=== PATIENT | female | born 1945 | race Caucasian/White ===

== ENCOUNTER 2018-01-16 07:00 | Day surgery (SDC) | payer MEDICARE ==
[~2018-01-16] VITALS: Ht 170.2 cm; Wt 95.1 kg
[2018-01-16] VITALS (15 sets, daily range): BP systolic 116–139; BP diastolic 72–106
[~2018-01-16 07:00] MED LIST: ATOR40TA PO; BIMA2.5D OP; CARV-49 PO; DABI150C PO; FLEC100T2 PO; LACT1CAP65 PO; METH1TAB31 PO; MV M; OMEG1CAP54 PO; POLY17PO10 PO; RED600TA PO; UBID100C16 PO; VALS1TAB73 PO; VIT1CAPS42 PO
[2018-01-16] MEDS ORDERED: MIDAZolam 5mg/ml 2ml vial IV ONE (07:30)
[2018-01-16] MEDS ORDERED: fentaNYL/PF 50MCG/1 ML 2ML syringe IV ONE (07:30)
[2018-01-16] MEDS ORDERED: normal saline 1000ml 1,000 ML IV SCH (07:30)
[2018-01-16] MEDS ORDERED: APIX5TAB3 PO (07:30)
[2018-01-16] MEDS ORDERED: SOTA80TA73 PO (07:34)
[2018-01-16] MEDS ORDERED: LOSA1TAB36 PO (07:34)
[2018-01-16] MEDS ORDERED: GINK120C PO (07:38)
[2018-01-16] MEDS ORDERED: LUTE1CAP4 PO (07:38)
[2018-01-16] MEDS ORDERED: [UNRECOGNIZED DRUG - OTHER] PO (07:38)
[2018-01-16 08:12] LABS: ALBUMIN 3.5 G/DL (3.4-5.0); ANION GAP 7 (8-16); BASOPHILS % (AUTO) 0.5 % (0-1); BLOOD UREA NITROGEN 18 MG/DL (7-18); BUN/CREATININE RATIO 19.6 (6.6-38.0); CALCIUM 9.4 MG/DL (8.5-10.1); CHLORIDE 105 MMOL/L (99-107); CREATININE 0.92 MG/DL (0.40-0.90); EOSINOPHILS # (AUTO) 0.1 X10'3 (0-0.9); EOSINOPHILS % (AUTO) 2.6 % (0-6); GLUCOSE 112 MG/DL (70-104); HEMATOCRIT 44.6 % (35.0-45.0); LYMPHOCYTES # (AUTO) 2.3 X10'3 (1.1-4.8); LYMPHOCYTES % (AUTO) 43.1 % (21-51); MAGNESIUM 1.9 MG/DL (1.5-2.4); MEAN CORPUSCULAR HEMOGLOBIN 31.9 PG (27.0-31.0); MEAN CORPUSCULAR HGB CONC 33.6 % (33.0-36.5); MEAN CORPUSCULAR VOLUME 95.1 FL (78-98); MEAN PLATELET VOLUME 6.8 FL (7.4-10.4); MONOCYTES # (AUTO) 0.4 X10'3 (0-0.9); MONOCYTES % (AUTO) 8.2 % (2-12); NEUTROPHILS # (AUTO) 2.6 X10'3 (1.8-7.7); NEUTROPHILS % (AUTO) 45.6 % (42-75); PLATELET COUNT 239 X10'3 (140-440); POTASSIUM 3.9 MMOL/L (3.5-5.1); RED CELL DISTRIBUTION WIDTH 13.5 % (11.5-14.5); SODIUM 140 MMOL/L (135-145); TOTAL CARBON DIOXIDE 28.5 MMOL/L (24-32); WHITE BLOOD COUNT 5.4 X10'3 (4.5-11.0); eGFR 60 ML/MIN
[2018-01-16 08:27] LABS: INR 1.1 INR; PROTHROMBIN TIME 11.3 SECONDS (9.0-12.0)
== END 2018-01-16 10:45 | disposition home or self-care (01) ==
LOC: SSTAY O 07:00
PROVIDERS: ATTEND Internal Medicine Cardiovascular Disease
DX: I48.0 Paroxysmal atrial fibrillation (principal); I44.0 Atrioventricular block, first degree; I10 Essential (primary) hypertension; E78.5 Hyperlipidemia, unspecified; E66.9 Obesity, unspecified; G47.33 Obstructive sleep apnea (adult) (pediatric); I48.4 Atypical atrial flutter; I42.7 Cardiomyopathy due to drug and external agent; I08.0 Rheumatic disorders of both mitral and aortic valves; I49.5 Sick sinus syndrome; I25.10 Atherosclerotic heart disease of native coronary artery without angina pectoris; M19.90 Unspecified osteoarthritis, unspecified site; F32.9 Major depressive disorder, single episode, unspecified; Z87.440 Personal history of urinary (tract) infections; Z87.19 Personal history of other diseases of the digestive system; Z72.89 Other problems related to lifestyle; Z98.82 Breast implant status; Z79.01 Long term (current) use of anticoagulants; Z90.710 Acquired absence of both cervix and uterus; Z98.41 Cataract extraction status, right eye; Z98.42 Cataract extraction status, left eye; Z68.32 Body mass index [BMI] 32.0-32.9, adult; Z88.0 Allergy status to penicillin; Z88.5 Allergy status to narcotic agent; Z88.6 Allergy status to analgesic agent; Z90.711 Acquired absence of uterus with remaining cervical stump; Z79.899 Other long term (current) drug therapy; Z98.890 Other specified postprocedural states; Z82.49 Family history of ischemic heart disease and other diseases of the circulatory system
CPT/HCPCS: 36415; 80048; 83735; 85025; 85610; 92960; 93005; J2250; J3010; J7030; A4620

== ENCOUNTER 2018-02-03 10:21 | Inpatient (IN) | payer MEDICARE ==
[~2018-02-03] VITALS: Ht 152.4 cm; Wt 92.9 kg
[~2018-02-03 10:21] MED LIST changes: +APIX5TAB3 PO; -CARV-49 PO; -DABI150C PO; -FLEC100T2 PO; +GINK120C PO; +LOSA1TAB36 PO; +LUTE1CAP4 PO; -RED600TA PO; +SOTA80TA73 PO; -VALS1TAB73 PO; -VIT1CAPS42 PO; +[UNRECOGNIZED DRUG - OTHER] PO
[2018-02-03 11:14] VITALS: BP 113/71
[2018-02-03 12:37] LABS: BASOPHILS % (AUTO) 0 % (0-1); EOSINOPHILS # (AUTO) 0.1 X10'3 (0-0.9); EOSINOPHILS % (AUTO) 0.9 % (0-6); HEMATOCRIT 38.9 % (35.0-45.0); HEMOGLOBIN 12.9 g/dl (12.0-16.0); LYMPHOCYTES # (AUTO) 1.3 X10'3 (1.1-4.8); LYMPHOCYTES % (AUTO) 9.5 % (21-51); MEAN CORPUSCULAR HEMOGLOBIN 31.4 PG (27.0-31.0); MEAN CORPUSCULAR HGB CONC 33.2 % (33.0-36.5); MEAN CORPUSCULAR VOLUME 94.7 FL (78-98); MEAN PLATELET VOLUME 6.4 FL (7.4-10.4); MONOCYTES # (AUTO) 1.1 X10'3 (0-0.9); MONOCYTES % (AUTO) 7.8 % (2-12); NEUTROPHILS # (AUTO) 11.3 X10'3 (1.8-7.7); NEUTROPHILS % (AUTO) 81.8 % (42-75); PLATELET COUNT 412 X10'3 (140-440); RED BLOOD COUNT 4.11 X10'6 (4.20-5.60); RED CELL DISTRIBUTION WIDTH 13.9 % (11.5-14.5); WHITE BLOOD COUNT 13.9 X10'3 (4.5-11.0)
[2018-02-03 13:07] LABS: ALANINE AMINOTRANSFERASE 18 U/L (12-78); ALBUMIN 2.4 G/DL (3.4-5.0); ALBUMIN/GLOBULIN RATIO 0.5 (1.1-1.5); ALKALINE PHOSPHATASE 67 IU/L (46-116); ANION GAP 6 (8-16); ASPARTATE AMINO TRANSFERASE 16 U/L (10-37); BILIRUBIN,TOTAL 0.7 MG/DL (0.1-1.0); BLOOD UREA NITROGEN 8 MG/DL (7-18); BUN/CREATININE RATIO 8.2 (6.6-38.0); CALCIUM 8.9 MG/DL (8.5-10.1); CHLORIDE 97 MMOL/L (99-107); CREATININE 0.98 MG/DL (0.40-0.90); GLUCOSE 125 MG/DL (70-104); POTASSIUM 3.6 MMOL/L (3.5-5.1); SODIUM 133 MMOL/L (135-145); TOTAL CARBON DIOXIDE 29.9 MMOL/L (24-32); TOTAL PROTEIN 6.9 G/DL (6.4-8.2); eGFR 56 ML/MIN
[2018-02-03] MEDS ORDERED: pneumococcal 23-VAL P-sac vacc 25 mcg/0.5ml vial IMVAC ONE (14:05)
[2018-02-03] MEDS ORDERED: METO-384 PO (14:19)
[2018-02-03] MEDS ORDERED: LATA2.5D2 (14:24)
[2018-02-03] MEDS: normal saline 1000ml 1,000 ML IV SCH (15:16)
[2018-02-03] MEDS: losartan 50mg tablet PO SCH (16:45)
[2018-02-03] MEDS ORDERED: acetaminophen 325mg tablet PO PRN (18:55)
[2018-02-03] MEDS: metoprolol succinate 25mg (24-HOUR) SR. Tablet PO SCH (19:18)
[2018-02-03 20:00] VITALS: BP 118/65
[2018-02-03] MEDS ORDERED: non-formulary drug (Ginkgo Biloba Extract (Ginkgo Biloba) 120 MG) PO SCH (20:00)
[2018-02-03] MEDS ORDERED: piperacillin/tazo 3.375gm/50ml 50 ML IV SCH (20:00)
[2018-02-03] MEDS: levoFLOXACIN-Levaquin 750MG/D5 150 ML IV SCH (22:03)
[2018-02-03] MEDS: latanoprost 0.005% 2.5ml ophthalmic drops LEFTEYE SCH (22:04)
[2018-02-04] VITALS: BP 96/45
[2018-02-04] MEDS: metroNIDAZOLE-Flagyl 500mg/NS 100 ML IV SCH ×4 (00:32→23:07)
[2018-02-04] MEDS: normal saline 1000ml 1,000 ML IV SCH ×3 (05:30→20:39)
[2018-02-04 07:10] VITALS: BP 111/65
[2018-02-04] MEDS: metoprolol succinate 25mg (24-HOUR) SR. Tablet PO SCH ×2 (07:57→20:32)
[2018-02-04] MEDS ORDERED: atorvastatin 20mg tablet PO SCH (08:00)
[2018-02-04] MEDS: lactobacillus rhamnosus 10,000 MMU CELLS/CAPSULE PO SCH (08:01)
[2018-02-04] MEDS: losartan 50mg tablet PO SCH (08:02)
[2018-02-04 11:12] VITALS: BP 109/50
[2018-02-04] MEDS ORDERED: heparin 25,000 UNIT/250ml bag 250 ML IV SCH (12:52)
[2018-02-04] MEDS ORDERED: heparin 10,000 units/1 ML INJ IV PRN (12:55)
[2018-02-04 13:39] LABS: BASOPHILS % (AUTO) 0.2 % (0-1); EOSINOPHILS % (AUTO) 0 % (0-6); HEMOGLOBIN 11.9 g/dl (12.0-16.0); LYMPHOCYTES # (AUTO) 1.2 X10'3 (1.1-4.8); LYMPHOCYTES % (AUTO) 8.4 % (21-51); MEAN CORPUSCULAR HEMOGLOBIN 31.2 PG (27.0-31.0); MEAN CORPUSCULAR VOLUME 94.5 FL (78-98); MEAN PLATELET VOLUME 6.4 FL (7.4-10.4); MONOCYTES # (AUTO) 1.2 X10'3 (0-0.9); MONOCYTES % (AUTO) 8.7 % (2-12); NEUTROPHILS # (AUTO) 11.7 X10'3 (1.8-7.7); NEUTROPHILS % (AUTO) 82.7 % (42-75); PLATELET COUNT 333 X10'3 (140-440); RED BLOOD COUNT 3.81 X10'6 (4.20-5.60); WHITE BLOOD COUNT 14.1 X10'3 (4.5-11.0)
[2018-02-04 14:03] LABS: INR 1.3 INR; PROTHROMBIN TIME 13.4 SECONDS (9.0-12.0)
[2018-02-04] MEDS: heparin 25,000 UNIT/250ml bag 250 ML IV SCH (14:55)
[2018-02-04 16:50] VITALS: BP 112/52
[2018-02-04 20:00] VITALS: BP 127/69
[2018-02-04] MEDS: atorvastatin 20mg tablet PO SCH (20:32)
[2018-02-04] MEDS: levoFLOXACIN-Levaquin 750MG/D5 150 ML IV SCH (20:33)
[2018-02-04] MEDS: latanoprost 0.005% 2.5ml ophthalmic drops LEFTEYE SCH (20:33)
[2018-02-04] MEDS: ondansetron/PF 4mg/2ml inj IV PRN (23:07)
[2018-02-05] VITALS (17 sets, daily range): BP systolic 86–116; BP diastolic 47–84
[2018-02-05 03:14] LABS: BASOPHILS % (AUTO) 0.3 % (0-1); EOSINOPHILS % (AUTO) 0 % (0-6); HEMATOCRIT 36.5 % (35.0-45.0); HEMOGLOBIN 12.2 g/dl (12.0-16.0); LYMPHOCYTES # (AUTO) 1.4 X10'3 (1.1-4.8); LYMPHOCYTES % (AUTO) 10.1 % (21-51); MEAN CORPUSCULAR HEMOGLOBIN 31.5 PG (27.0-31.0); MEAN CORPUSCULAR HGB CONC 33.3 % (33.0-36.5); MEAN CORPUSCULAR VOLUME 94.5 FL (78-98); MEAN PLATELET VOLUME 6.7 FL (7.4-10.4); MONOCYTES # (AUTO) 1.5 X10'3 (0-0.9); MONOCYTES % (AUTO) 10.4 % (2-12); NEUTROPHILS # (AUTO) 11.2 X10'3 (1.8-7.7); NEUTROPHILS % (AUTO) 79.2 % (42-75); PLATELET COUNT 375 X10'3 (140-440); RED BLOOD COUNT 3.86 X10'6 (4.20-5.60); RED CELL DISTRIBUTION WIDTH 14.1 % (11.5-14.5); WHITE BLOOD COUNT 14.2 X10'3 (4.5-11.0)
[2018-02-05 03:35] LABS: ALANINE AMINOTRANSFERASE 18 U/L (12-78); ALBUMIN/GLOBULIN RATIO 0.4 (1.1-1.5); ALKALINE PHOSPHATASE 74 IU/L (46-116); ANION GAP 8 (8-16); ASPARTATE AMINO TRANSFERASE 15 U/L (10-37); BILIRUBIN,TOTAL 0.5 MG/DL (0.1-1.0); BLOOD UREA NITROGEN 5 MG/DL (7-18); BUN/CREATININE RATIO 6.1 (6.6-38.0); CHLORIDE 100 MMOL/L (99-107); CREATININE 0.82 MG/DL (0.40-0.90); GLUCOSE 121 MG/DL (70-104); POTASSIUM 3.4 MMOL/L (3.5-5.1); SODIUM 134 MMOL/L (135-145); TOTAL CARBON DIOXIDE 26.2 MMOL/L (24-32); TOTAL PROTEIN 6.5 G/DL (6.4-8.2); eGFR 69 ML/MIN
[2018-02-05] MEDS: lactobacillus rhamnosus 10,000 MMU CELLS/CAPSULE PO SCH (07:24)
[2018-02-05] MEDS: losartan 50mg tablet PO SCH (07:29)
[2018-02-05] MEDS: metoprolol succinate 25mg (24-HOUR) SR. Tablet PO SCH (07:29)
[2018-02-05] MEDS: metroNIDAZOLE-Flagyl 500mg/NS 100 ML IV SCH ×2 (07:30→15:28)
[2018-02-05] MEDS ORDERED: metoprolol tartrate 1mg/ml inj IV PRN (08:40)
[2018-02-05] MEDS ORDERED: nitroGLYCERIN 0.4mg SUBLingual tab SL PRN (08:40)
[2018-02-05] MEDS ORDERED: regadenoson 0.4mg/5ml syringe IV ONE ×2 (08:40→11:47)
[2018-02-05] MEDS ORDERED: aminophylline 250mg/10ml inj. IV PRN (08:40)
[2018-02-05] MEDS: levoFLOXACIN-Levaquin 750MG/D5 150 ML IV SCH (09:06)
[2018-02-05] MEDS ORDERED: potassium Cl 40MEQ/NS 500ml 500 ML IV PRN ×2 (09:10)
[2018-02-05] MEDS ORDERED: potassium Cl 20 mEq SR tablet PO PRN ×2 (09:10)
[2018-02-05] MEDS ORDERED: aminophylline inj. 10 ML IV ONE (11:47)
[2018-02-05] MEDS ORDERED: TIMO5SOL8 EACHEYE (13:58)
[2018-02-05] MEDS ORDERED: heparin 25,000 UNIT/250ml bag 250 ML IV SCH (14:18)
[2018-02-05] MEDS ORDERED: heparin 10,000 units/1 ML INJ IV ONE (14:20)
[2018-02-05] MEDS ORDERED: heparin 10,000 units/1 ML INJ IV PRN (14:20)
[2018-02-05] MEDS: ondansetron/PF 4mg/2ml inj IV PRN (14:31)
[2018-02-05] MEDS: heparin 25,000 UNIT/250ml bag 250 ML IV SCH (15:39)
[2018-02-05 16:55] LABS: MAGNESIUM 1.5 MG/DL (1.5-2.4); PHOSPHORUS 1.9 MG/DL (2.3-4.5)
[2018-02-05 17:03] LABS: BASOPHILS % (AUTO) 0.3 % (0-1); EOSINOPHILS % (AUTO) 0 % (0-6); HEMATOCRIT 37.7 % (35.0-45.0); HEMOGLOBIN 12.6 g/dl (12.0-16.0); LYMPHOCYTES # (AUTO) 1.4 X10'3 (1.1-4.8); LYMPHOCYTES % (AUTO) 9.6 % (21-51); MEAN CORPUSCULAR HEMOGLOBIN 31.7 PG (27.0-31.0); MEAN CORPUSCULAR HGB CONC 33.3 % (33.0-36.5); MEAN CORPUSCULAR VOLUME 95.3 FL (78-98); MEAN PLATELET VOLUME 7.1 FL (7.4-10.4); MONOCYTES % (AUTO) 6.9 % (2-12); NEUTROPHILS # (AUTO) 12.2 X10'3 (1.8-7.7); NEUTROPHILS % (AUTO) 83.2 % (42-75); PLATELET COUNT 356 X10'3 (140-440); RED BLOOD COUNT 3.96 X10'6 (4.20-5.60); RED CELL DISTRIBUTION WIDTH 14.1 % (11.5-14.5); WHITE BLOOD COUNT 14.6 X10'3 (4.5-11.0)
[2018-02-05] MEDS ORDERED: sodium phosphate inj. 15 MMOL in dextrose 5%-water 150 ML IV PRN (17:15)
[2018-02-05] MEDS ORDERED: sodium phosphate inj. 30 MMOL in dextrose 5%-water 250 ML IV PRN (17:15)
[2018-02-05] MEDS: Neutra Phos packet PO PRN (17:24)
[2018-02-05] MEDS: latanoprost 0.005% 2.5ml ophthalmic drops LEFTEYE SCH (21:30)
[2018-02-05] MEDS: atorvastatin 20mg tablet PO SCH (21:30)
[2018-02-05 22:33] LABS: CLARITY,URINE CLEAR (Clear); COLOR,URINE YELLOW (Yellow); GLUCOSE, URINE NEGATIVE (Neg); KETONES,URINE TRACE mg/dl (Neg); LEUKOCYTE ESTERASE ,URINE NEGATIVE (Neg); NITRITES, URINE POSITIVE (Neg); OCCULT BLOOD,URINE TRACE-INTACT (Neg); PROTEIN,URINE NEGATIVE (Neg); UROBILINOGEN,URINE 0.2 E.U/dL (0.2-1.0)
[2018-02-05 22:39] LABS: UA COLLECTION TYPE CLN CATCH MIDSTREAM
[2018-02-05] MEDS: normal saline 1000ml 1,000 ML IV SCH (22:39)
[2018-02-05 22:40] LABS: WBC,URINE 0-4 /HPF (0-4)
[2018-02-05 22:41] LABS: BACTERIA,URINE FEW /HPF (Neg)
[2018-02-05 22:42] LABS: CELLULAR CAST 0-4 /LPF (NEGATIVE); MUCUS STRANDS MODERATE /LPF (Neg); SQUAMOUS EPITHELIAL CELL,UR FEW /LPF (FEW); WBC CLUMPS,URINE FEW /HPF (NEGATIVE)
[2018-02-06] VITALS: BP 121/81
[2018-02-06] MEDS: Neutra Phos packet PO PRN ×4 (00:29→20:50)
[2018-02-06] MEDS: metroNIDAZOLE-Flagyl 500mg/NS 100 ML IV SCH ×4 (00:30→23:45)
[2018-02-06] MEDS: magnesium oxide 400mg tablet PO SCH ×3 (00:30→11:46)
[2018-02-06 02:02] LABS: BASOPHILS % (AUTO) 0.4 % (0-1); EOSINOPHILS # (AUTO) 0.1 X10'3 (0-0.9); EOSINOPHILS % (AUTO) 1.1 % (0-6); HEMOGLOBIN 11.2 g/dl (12.0-16.0); LYMPHOCYTES # (AUTO) 1.3 X10'3 (1.1-4.8); LYMPHOCYTES % (AUTO) 10.9 % (21-51); MEAN CORPUSCULAR HEMOGLOBIN 31.4 PG (27.0-31.0); MEAN CORPUSCULAR HGB CONC 32.9 % (33.0-36.5); MEAN CORPUSCULAR VOLUME 95.3 FL (78-98); MEAN PLATELET VOLUME 6.5 FL (7.4-10.4); MONOCYTES % (AUTO) 8.5 % (2-12); NEUTROPHILS # (AUTO) 9.5 X10'3 (1.8-7.7); NEUTROPHILS % (AUTO) 79.1 % (42-75); PLATELET COUNT 321 X10'3 (140-440); RED BLOOD COUNT 3.57 X10'6 (4.20-5.60)
[2018-02-06 07:34] VITALS: BP_SYST 117; BP_SYST 95; BP_DIAS 69; BP_DIAS 71
[2018-02-06 07:39] LABS: MAGNESIUM 1.4 MG/DL (1.5-2.4); PHOSPHORUS 2.1 MG/DL (2.3-4.5)
[2018-02-06] MEDS: heparin 25,000 UNIT/250ml bag 250 ML IV SCH ×3 (07:55→23:47)
[2018-02-06] MEDS ORDERED: losartan 50mg tablet PO SCH (08:00)
[2018-02-06] MEDS ORDERED: HYDROchlorothiazide 12.5mg capsule PO SCH (08:00)
[2018-02-06] MEDS: methenamine hippurate 1gm tablet PO SCH ×2 (08:00→08:25)
[2018-02-06] MEDS: beta-carotene(A) w/C & E + minerals tab PO SCH ×2 (08:00→08:26)
[2018-02-06] MEDS: lactobacillus rhamnosus 10,000 MMU CELLS/CAPSULE PO SCH ×2 (08:00→08:26)
[2018-02-06] MEDS ORDERED: timolol XE 0.5% ophth GEL forming sol 5ml EACHEYE SCH (08:00)
[2018-02-06] MEDS ORDERED: furosemide 10 MG/1 ML 10ml inj IV SCH (08:00)
[2018-02-06] MEDS: levoFLOXACIN-Levaquin 750MG/D5 150 ML IV SCH (08:16)
[2018-02-06 11:35] VITALS: BP 107/72
[2018-02-06] MEDS: normal saline 1000ml 1,000 ML IV SCH ×2 (14:30→15:20)
[2018-02-06 18:00] VITALS: BP 110/71
[2018-02-06] MEDS: latanoprost 0.005% 2.5ml ophthalmic drops LEFTEYE SCH (20:49)
[2018-02-06] MEDS: metoprolol tartrate 12.5mg (1/2 tablet) PO SCH (20:50)
[2018-02-06] MEDS: atorvastatin 20mg tablet PO SCH (20:50)
[2018-02-07] VITALS: BP 108/71
[2018-02-07] MEDS: heparin 25,000 UNIT/250ml bag 250 ML IV SCH (03:16)
[2018-02-07 04:56] LABS: BASOPHILS % (AUTO) 0.4 % (0-1); EOSINOPHILS % (AUTO) 0 % (0-6); HEMOGLOBIN 11.1 g/dl (12.0-16.0); LYMPHOCYTES # (AUTO) 1.5 X10'3 (1.1-4.8); LYMPHOCYTES % (AUTO) 14.1 % (21-51); MEAN CORPUSCULAR HEMOGLOBIN 31.5 PG (27.0-31.0); MEAN CORPUSCULAR HGB CONC 33.5 % (33.0-36.5); MEAN CORPUSCULAR VOLUME 94.3 FL (78-98); MEAN PLATELET VOLUME 7.4 FL (7.4-10.4); MONOCYTES % (AUTO) 9.7 % (2-12); NEUTROPHILS # (AUTO) 7.9 X10'3 (1.8-7.7); NEUTROPHILS % (AUTO) 75.8 % (42-75); PLATELET COUNT 287 X10'3 (140-440); RED CELL DISTRIBUTION WIDTH 13.9 % (11.5-14.5); WHITE BLOOD COUNT 10.4 X10'3 (4.5-11.0)
[2018-02-07] MEDS: Neutra Phos packet PO PRN ×2 (05:06→14:03)
[2018-02-07] MEDS ORDERED: potassium Cl oral solution 20 MEQ/15 ML PO PRN ×2 (07:11→07:15)
[2018-02-07 07:16] VITALS: BP 125/71
[2018-02-07] MEDS ORDERED: timolol XE 0.5% ophth GEL forming sol 5ml LEFTEYE SCH (08:00)
[2018-02-07] MEDS: beta-carotene(A) w/C & E + minerals tab PO SCH (08:00)
[2018-02-07] MEDS: metroNIDAZOLE-Flagyl 500mg/NS 100 ML IV SCH ×3 (08:01→23:49)
[2018-02-07] MEDS: metoprolol tartrate 12.5mg (1/2 tablet) PO SCH ×2 (08:02→20:43)
[2018-02-07] MEDS: lactobacillus rhamnosus 10,000 MMU CELLS/CAPSULE PO SCH (08:03)
[2018-02-07] MEDS: timolol 0.5% ophthalmic solution 5ml bottle LEFTEYE SCH (08:05)
[2018-02-07] MEDS: methenamine hippurate 1gm tablet PO SCH (08:05)
[2018-02-07] MEDS: normal saline 1000ml 1,000 ML IV SCH (08:11)
[2018-02-07 09:23] LABS: ALBUMIN 2.2 G/DL (3.4-5.0); ANION GAP 7 (8-16); BLOOD UREA NITROGEN 3 MG/DL (7-18); CALCIUM 8.2 MG/DL (8.5-10.1); CHLORIDE 99 MMOL/L (99-107); GLUCOSE 158 MG/DL (70-104); POTASSIUM 4.2 MMOL/L (3.5-5.1); SODIUM 133 MMOL/L (135-145); TOTAL CARBON DIOXIDE 26.7 MMOL/L (24-32); eGFR 55 ML/MIN
[2018-02-07] MEDS: levoFLOXACIN-Levaquin 750MG/D5 150 ML IV SCH (09:48)
[2018-02-07 11:06] LABS: MAGNESIUM 1.3 MG/DL (1.5-2.4)
[2018-02-07 11:39] VITALS: BP 102/55
[2018-02-07] MEDS ORDERED: magnesium Cl slow-release 64mg tablet PO PRN (16:10)
[2018-02-07] MEDS ORDERED: magnesium 4gm in 100ml NS 100 ML IV PRN (16:10)
[2018-02-07 18:00] VITALS: BP 109/67
[2018-02-07] MEDS: atorvastatin 20mg tablet PO SCH (20:44)
[2018-02-07] MEDS: latanoprost 0.005% 2.5ml ophthalmic drops LEFTEYE SCH (20:44)
[2018-02-07] MEDS: apixaban 5mg tablet PO SCH (20:44)
[2018-02-07] MEDS: magnesium 1gm/100ml D5W IVPB 100 ML IV PRN ×2 (21:00→22:16)
[2018-02-08] VITALS: BP 123/75
[2018-02-08] MEDS: normal saline 1000ml 1,000 ML IV SCH (04:06)
[2018-02-08 05:12] LABS: BASOPHILS % (AUTO) 0.2 % (0-1); EOSINOPHILS % (AUTO) 0 % (0-6); HEMATOCRIT 33.7 % (35.0-45.0); HEMOGLOBIN 11.1 g/dl (12.0-16.0); LYMPHOCYTES # (AUTO) 1.4 X10'3 (1.1-4.8); LYMPHOCYTES % (AUTO) 19.2 % (21-51); MEAN CORPUSCULAR HEMOGLOBIN 31.3 PG (27.0-31.0); MEAN PLATELET VOLUME 7.3 FL (7.4-10.4); MONOCYTES # (AUTO) 0.8 X10'3 (0-0.9); MONOCYTES % (AUTO) 10.3 % (2-12); NEUTROPHILS # (AUTO) 5.2 X10'3 (1.8-7.7); NEUTROPHILS % (AUTO) 70.3 % (42-75); PLATELET COUNT 303 X10'3 (140-440); RED BLOOD COUNT 3.55 X10'6 (4.20-5.60); RED CELL DISTRIBUTION WIDTH 14.5 % (11.5-14.5); WHITE BLOOD COUNT 7.5 X10'3 (4.5-11.0)
[2018-02-08 05:25] LABS: MAGNESIUM 2.3 MG/DL (1.5-2.4); PHOSPHORUS 2.8 MG/DL (2.3-4.5); POTASSIUM 3.7 MMOL/L (3.5-5.1)
[2018-02-08 07:00] VITALS: BP 104/57
[2018-02-08] MEDS: metoprolol tartrate 12.5mg (1/2 tablet) PO SCH ×3 (07:22→20:35)
[2018-02-08] MEDS: metroNIDAZOLE-Flagyl 500mg/NS 100 ML IV SCH ×2 (07:45→16:11)
[2018-02-08] MEDS: timolol 0.5% ophthalmic solution 5ml bottle LEFTEYE SCH (07:46)
[2018-02-08] MEDS: lactobacillus rhamnosus 10,000 MMU CELLS/CAPSULE PO SCH (07:46)
[2018-02-08] MEDS: apixaban 5mg tablet PO SCH ×2 (07:46→20:35)
[2018-02-08] MEDS: methenamine hippurate 1gm tablet PO SCH (07:46)
[2018-02-08 11:43] VITALS: BP 94/61
[2018-02-08 19:00] VITALS: BP 93/66
[2018-02-08] MEDS: latanoprost 0.005% 2.5ml ophthalmic drops LEFTEYE SCH (20:34)
[2018-02-08] MEDS: atorvastatin 20mg tablet PO SCH (20:34)
[2018-02-08 20:43] VITALS: BP 116/84
[2018-02-09] VITALS: BP 112/67
[2018-02-09] MEDS: metroNIDAZOLE-Flagyl 500mg/NS 100 ML IV SCH ×2 (00:23→07:23)
[2018-02-09 05:11] LABS: BASOPHILS % (AUTO) 0.3 % (0-1); EOSINOPHILS # (AUTO) 0.1 X10'3 (0-0.9); EOSINOPHILS % (AUTO) 2.4 % (0-6); HEMATOCRIT 34.9 % (35.0-45.0); HEMOGLOBIN 11.6 g/dl (12.0-16.0); LYMPHOCYTES # (AUTO) 1.9 X10'3 (1.1-4.8); LYMPHOCYTES % (AUTO) 31.2 % (21-51); MEAN CORPUSCULAR HEMOGLOBIN 31.6 PG (27.0-31.0); MEAN CORPUSCULAR HGB CONC 33.2 % (33.0-36.5); MEAN CORPUSCULAR VOLUME 95.2 FL (78-98); MEAN PLATELET VOLUME 7.4 FL (7.4-10.4); MONOCYTES # (AUTO) 0.7 X10'3 (0-0.9); MONOCYTES % (AUTO) 11.3 % (2-12); NEUTROPHILS # (AUTO) 3.4 X10'3 (1.8-7.7); NEUTROPHILS % (AUTO) 54.8 % (42-75); PLATELET COUNT 312 X10'3 (140-440); RED BLOOD COUNT 3.67 X10'6 (4.20-5.60); RED CELL DISTRIBUTION WIDTH 14.2 % (11.5-14.5); WHITE BLOOD COUNT 6.2 X10'3 (4.5-11.0)
[2018-02-09 05:14] LABS: MAGNESIUM 1.9 MG/DL (1.5-2.4); POTASSIUM 3.9 MMOL/L (3.5-5.1)
[2018-02-09 07:00] VITALS: BP 131/85
[2018-02-09] MEDS: metoprolol tartrate 12.5mg (1/2 tablet) PO SCH (07:23)
[2018-02-09] MEDS: methenamine hippurate 1gm tablet PO SCH (07:23)
[2018-02-09] MEDS: lactobacillus rhamnosus 10,000 MMU CELLS/CAPSULE PO SCH (07:23)
[2018-02-09] MEDS: apixaban 5mg tablet PO SCH (07:23)
[2018-02-09] MEDS: timolol 0.5% ophthalmic solution 5ml bottle LEFTEYE SCH (07:24)
[2018-02-09 11:24] VITALS: BP 118/96
[2018-02-09] MEDS ORDERED: potassium Cl 20 mEq SR tablet PO STA (11:43)
[2018-02-09] MEDS ORDERED: furosemide 20MG tablet PO ONE (11:45)
[2018-02-09] MEDS ORDERED: LEVO500T2 PO (11:46)
[2018-02-09] MEDS ORDERED: METR500T4 PO (11:47)
== END 2018-02-09 13:45 | disposition home or self-care (01) | DRG 871 ==
LOC: SUR 3N 10:21
PROVIDERS: ADMIT Internal Medicine; ATTEND Internal Medicine
PROC: 3E0234Z Introduction of Serum, Toxoid and Vaccine into Muscle, Percutaneous Approach (ICD-10-PCS; principal; 2018-02-03)
DX: A41.9 Sepsis, unspecified organism (principal); K65.0 Generalized (acute) peritonitis; K57.32 Diverticulitis of large intestine without perforation or abscess without bleeding; I50.22 Chronic systolic (congestive) heart failure; E78.5 Hyperlipidemia, unspecified; G47.30 Sleep apnea, unspecified; I11.0 Hypertensive heart disease with heart failure; I48.2 Chronic atrial fibrillation; Z90.710 Acquired absence of both cervix and uterus; Z79.899 Other long term (current) drug therapy; Z23 Encounter for immunization
CPT/HCPCS: 36415; 71046; 78452; 80048; 80053; 81001; 83605; 83735; 83880; 84100; 84132; 85025; 85610; 85730; 87040; 87070; 90732; 93005; 93017; A9500; G0378; J0280; J1644; J1940; J1956; J2405; J3475; J3480; J3490; J7030

== ENCOUNTER 2020-11-18 12:32 | Day surgery (SDC) | payer MEDICARE ==
[2020-11-18] VITALS (7 sets, daily range): BP systolic 94–112; BP diastolic 48–71
[~2020-11-18] VITALS: Ht 170.2 cm; Wt 97.7 kg
[~2020-11-18 12:32] MED LIST changes: +LATA2.5D14; +METO-384 PO; -SOTA80TA73 PO; +TIMO5SOL8 EACHEYE
[2020-11-18] MEDS ORDERED: vancomycin 1,500 MG in NS 300ml IV soln IV ONE (13:07)
[2020-11-18] MEDS ORDERED: clindamycin-Cleocin 900mg/D5W 50 ML IV ONE (13:07)
[2020-11-18] MEDS ORDERED: normal saline 1000ml 1,000 ML IV SCH ×2 (13:10→16:55)
[2020-11-18] MEDS ORDERED: PANT-47 PO (13:18)
[2020-11-18] MEDS ORDERED: LOSA25TA96 PO (13:19)
[2020-11-18] MEDS ORDERED: SPIR25TA5 PO (13:20)
[2020-11-18] MEDS ORDERED: POTA10TA19 PO (13:21)
[2020-11-18] MEDS ORDERED: FURO-149 PO (13:21)
[2020-11-18] MEDS ORDERED: [UNRECOGNIZED DRUG - OTHER] (13:23)
[2020-11-18] MEDS ORDERED: CHOL10006 PO (13:24)
[2020-11-18] MEDS ORDERED: MAGN500C16 PO (13:31)
[2020-11-18] MEDS ORDERED: midazolam 1 mg/ML 2ml injection ONE ×3 (13:33→15:59)
[2020-11-18] MEDS ORDERED: fentaNYL/PF 50MCG/1 ML 2ML syringe ONE (13:33)
[2020-11-18] MEDS ORDERED: LIDOCAINE 2% w/EPI 1:100:000 30mL injection MDV**cath lab 1 only ONE (13:33)
[2020-11-18] MEDS ORDERED: vancomycin 1,000mg inj ONE (13:33)
[2020-11-18 14:03] LABS: BASOPHILS % (AUTO) 0.4 % (0-1); EOSINOPHILS # (AUTO) 0.1 X10'3 (0-0.9); HEMOGLOBIN 11.8 g/dl (12.0-16.0); LYMPHOCYTES # (AUTO) 2.4 X10'3 (1.1-4.8); LYMPHOCYTES % (AUTO) 40.8 % (21-51); MEAN CORPUSCULAR HGB CONC 33.7 g/dL (33.0-36.5); MEAN CORPUSCULAR VOLUME 98.1 FL (78-98); MEAN PLATELET VOLUME 6.6 FL (7.4-10.4); MONOCYTES # (AUTO) 0.5 X10'3 (0-0.9); MONOCYTES % (AUTO) 9.1 % (2-12); NEUTROPHILS # (AUTO) 2.8 X10'3 (1.8-7.7); NEUTROPHILS % (AUTO) 47.7 % (42-75); PLATELET COUNT 278 X10'3 (140-440); RED BLOOD COUNT 3.57 X10'6 (4.20-5.60); RED CELL DISTRIBUTION WIDTH 13.8 % (11.5-14.5); WHITE BLOOD COUNT 5.9 X10'3 (4.5-11.0)
[2020-11-18 14:10] LABS: ALBUMIN 3.3 G/DL (3.4-5.0); ANION GAP 7 (8-16); BLOOD UREA NITROGEN 23 MG/DL (7-18); BUN/CREATININE RATIO 19.8 (6.6-38.0); CALCIUM 9.4 MG/DL (8.5-10.1); CHLORIDE 103 MMOL/L (99-107); CREATININE 1.16 MG/DL (0.40-0.90); MAGNESIUM 1.9 MG/DL (1.5-2.4); POTASSIUM 4.3 MMOL/L (3.5-5.1); SODIUM 138 MMOL/L (135-145); eGFR 46 ML/MIN
[2020-11-18 14:11] LABS: GLUCOSE 109 MG/DL (70-104)
[2020-11-18] MEDS ORDERED: HYDROcodone/acetaminophen 5mg/325mg tablet PO PRN (16:50)
[2020-11-18] MEDS ORDERED: HYDROcodone/acetaminophen 10/325mg tab PO PRN (16:50)
== END 2020-11-18 18:20 | disposition home or self-care (01) ==
LOC: SSTAY O 12:32
PROVIDERS: ATTEND Internal Medicine Cardiovascular Disease
DX: I49.5 Sick sinus syndrome (principal); I48.0 Paroxysmal atrial fibrillation; I42.7 Cardiomyopathy due to drug and external agent; I48.4 Atypical atrial flutter; E78.5 Hyperlipidemia, unspecified; I34.0 Nonrheumatic mitral (valve) insufficiency; I10 Essential (primary) hypertension; G47.30 Sleep apnea, unspecified; E66.9 Obesity, unspecified; Z68.33 Body mass index [BMI] 33.0-33.9, adult; Z72.89 Other problems related to lifestyle; Z98.890 Other specified postprocedural states; Z79.899 Other long term (current) drug therapy; Z90.710 Acquired absence of both cervix and uterus; Z98.49 Cataract extraction status, unspecified eye; Z88.5 Allergy status to narcotic agent; Z88.8 Allergy status to other drugs, medicaments and biological substances; Z82.49 Family history of ischemic heart disease and other diseases of the circulatory system
CPT/HCPCS: 33208; 36415; 71045; 80048; 83735; 85025; 85610; 93005; 99152; 99153; C1785; C1894; C1898; J2250; J3010; J3370; J7030; J7040; A4565; A4620; J3490